=== PATIENT | female | born 1995 | race Hispanic/Latino ===

== ENCOUNTER 2021-11-04 11:45 | Day surgery (SDC) | payer OTHER ==
[~2021-11-04] VITALS: Ht 149.9 cm; Wt 59.4 kg
[~2021-11-04 11:45] MED LIST: LR 1,000 ML IV ONE; MIDAZOLAM INJ 2MG/2ML VIAL (J2250 PER 1MG) IV PRN; fentaNYL 100 MCG/2 ML INJECTION IV PRN
[2021-11-04] MEDS ORDERED: propofoL 200 MG/20 ML VIAL As Ordered ONE (15:39)
[2021-11-04] MEDS ORDERED: fentaNYL 100 MCG/2 ML INJECTION As Ordered ONE (15:40)
[2021-11-04] MEDS ORDERED: MIDAZOLAM INJ 2MG/2ML VIAL (J2250 PER 1MG) As Ordered ONE (15:40)
[2021-11-04] MEDS ORDERED: dexameTHASONE 4 MG/ML 1ML VIAL (J1100 PER 1MG) As Ordered ONE (15:40)
[2021-11-04] MEDS ORDERED: ONDANSETRON 4MG/2ML VIAL As Ordered ONE ×2 (15:40→19:16)
[2021-11-04] MEDS ORDERED: LIDOCAINE 2% 100MG/5ML SDV (FOR ANES.) As Ordered ONE (15:40)
[2021-11-04] MEDS ORDERED: ROPIvacaine 0.5% 30ML INJECTION (J2795 PER 1MG) XX ONE (15:55)
[2021-11-04] MEDS ORDERED: EPINEPHrine INJ 1 MG/ML 1ML AMP XX ONE (15:55)
[2021-11-04] MEDS ORDERED: dexameTHASONE 10MG/1ML VIAL PRES.FREE (J1100 PER 1MG) XX ONE (15:55)
[2021-11-04] MEDS ORDERED: KETOROLAC 60MG 2ML VIAL As Ordered ONE (16:10)
[2021-11-04] MEDS ORDERED: LIDOCAINE 1% MDV 20ML VIAL As Ordered ONE (16:56)
[2021-11-04] MEDS ORDERED: TRANEXAMIC ACID 100 MG/ML 10ML VIAL As Ordered ONE (17:11)
[2021-11-04] MEDS ORDERED: ceFAZolin 2 GM/D5W 50 ML IV BAG (J0690 PER 500MG) As Ordered ONE (18:42)
[2021-11-04] MEDS ORDERED: HYDROmorphone HCL 2MG/ML 1ML VIAL As Ordered ONE (18:54)
[2021-11-04] MEDS ORDERED: BUPIVACAINE LIPOSOME/PF 1.3% 20ML VIAL (13.3MG/ML)(EXPAREL) As Ordered ONE (18:57)
[2021-11-04] MEDS ORDERED: METOCLOPRAMIDE INJ 10MG/2ML VIAL (J2765 PER 1) As Ordered ONE (19:16)
[2021-11-04] MEDS ORDERED: ePHEDrine INJ 50 MG/ML VIAL As Ordered ONE (19:45)
[2021-11-04] MEDS ORDERED: ePHEDrine INJ 50 MG/ML VIAL IM ONE (19:55)
[2021-11-04 21:00] VITALS: BP 119/68
== END 2021-11-04 21:18 | disposition home or self-care (01) ==
LOC: M SDC 11:45
PROVIDERS: ATTEND Orthopaedic Surgery
DX: M25.371 Other instability, right ankle (principal); M26.81 Anterior soft tissue impingement
CPT/HCPCS: 27698; 29895; 76000; 81025; C1713; C9290; J0690; J1100; J1170; J1885; J2250; J2405; J2765; J3010

== ENCOUNTER 2022-10-04 14:03 | Emergency (ER) | payer OTHER ==
[~2022-10-04] VITALS: Ht 149.9 cm; Wt 60.6 kg
[2022-10-04 14:05] VITALS: BP 131/82
[2022-10-04] MEDS ORDERED: NS 1,000 ML IV ONE (16:55)
[2022-10-04] MEDS ORDERED: ONDANSETRON 4MG 2ML VIAL IV ONE (16:55)
[2022-10-04] MEDS ORDERED: KETOROLAC 30 MG/ML 1ML VIAL IV ONE (16:55)
[2022-10-04 18:12] LABS: BASO % 0.5 % (0.0-1.0); EOS # 0.1 10^3/uL (0.0-0.5); EOS % 1.5 % (0.0-3.0); HEMATOCRIT 42.4 % (36.0-47.0); LYMPH # 2.8 10^3/uL (1.5-5.0); MONO # 0.5 10^3/uL (0.0-0.8); MONO % 5.8 % (2.0-8.0); NEUTROPHILS # 4.7 10^3/uL (1.5-8.5); NEUTROPHILS % 58.1 % (36.0-66.0); PLATELET COUNT, AUTOMATED 291 10^3/uL (150-450); RED BLOOD COUNT 4.82 10^6/uL (4.00-5.40); WHITE BLOOD COUNT 8.1 10^3/uL (4.0-10.0)
[2022-10-04 18:33] LABS: LIPASE 53 U/L (12-53)
[2022-10-04 18:36] LABS: ALBUMIN 3.9 G/DL (3.2-5.2); ALKALINE PHOSPHATASE 64 U/L (46-116); ALT/SGPT < 9 U/L (7.0-40); AST/SGOT 17 U/L (<34); BILIRUBIN,DIRECT 0.1 MG/DL (<0.4); BILIRUBIN,TOTAL 0.4 MG/DL (0.3-1.2); BLOOD UREA NITROGEN 13 MG/DL (9-23); CALCIUM LEVEL 8.7 MG/DL (8.5-10.1); CARBON DIOXIDE LEVEL 27 MMOL/L (20-31); CHLORIDE LEVEL 107 MMOL/L (98-107); CREATININE FOR GFR 0.75 MG/DL (0.55-1.30); GLOMERULAR FILTRATION RATE > 60.0 (>60); GLUCOSE, FASTING 91 MG/DL (60-100); POTASSIUM SERUM 4.1 MMOL/L (3.5-5.1); SODIUM LEVEL 139 MMOL/L (136-145)
[2022-10-04] MEDS ORDERED: ISOVUE-370 76% 100ML VIAL As Ordered ONE (19:11)
[2022-10-04] MEDS ORDERED: ONDA4TAB6 PO (20:53)
[2022-10-04] MEDS ORDERED: FAMO20TA PO (20:53)
== END 2022-10-04 21:01 | disposition home or self-care (01) ==
LOC: M ED 14:03
DX: R11.2 Nausea with vomiting, unspecified (principal); R19.7 Diarrhea, unspecified; F10.10 Alcohol abuse, uncomplicated; Z79.83 Long term (current) use of bisphosphonates; Z79.899 Other long term (current) drug therapy
CPT/HCPCS: 74177; 80048; 80076; 81001; 83605; 83690; 84702; 85025; 96361; 96374; 96375; 99283; J1885; J2405; Q9967